=== PATIENT | male | born 1945 | race African-American/Black ===

== ENCOUNTER → 2016-12-05 | Outpatient (CLI) | payer OTHER, MEDICAID ==
[2016-12-05 08:40] LABS: CREATININE 1.42 mg/dL (0.70-1.30)
--- NOTE | 2016-12-05 12:21 | MRI ---
STUDY: MRI OF THE BRAIN WITHOUT AND WITH GADOLINIUM HISTORY: Seizure disorder. Headaches, seizures, and blurred vision. Technique: Multiplanar multi-sequence MRI of the brain was obtained utilizing standard departmental p rotocol. Sagittal and axial T1, axial T2, FLAIR, diffusion (DWI/ADC) images through the brain were pe rformed. Coronal T2 FSE and T2 FLAIR images were also performed. 20 cc of Omniscan was administered intravenously without reported complication following acquisition of informed written consent. Post gadolinium axial and coronal T1 weighted images were also performed and reviewed. Comparison: Findings: Pre gadolinium brain: The sulci, cisterns and ventricles are prominent consistent with diffuse volume loss. There are confluent and scattered foci of T2 prolongation in the periventricular and subcortic al white matter of both hemispheres. This is a nonspecific finding which likely represents microangio pathic change in a patient of this age. Confluent T2 prolongation in the frontal and temporal lobes bilaterally also appears to involve overl ezra cortex. This raises the possibility of prior closed head injury with bifrontal contusions. There is no evidence of acute territorial infarction, hemorrhage, mass, mass effect, or midline shift . There are no abnormal intra-axial or extra-axial fluid collections. There is bilateral hippocampal volume loss. There is no evidence of carlisle matter heterotopia or cortical dysplasia. The major intracr anial vascular flow voids appear intact. The left vertebral artery is dominant. There is left sided a phakia. 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 Post gadolinium brain: Following the uneventful administration of intravenous gadolinium, there is no evidence of abnormal parenchymal or leptomeningeal enhancement. IMPRESSION: 1. No evidence of acute intracranial abnormality. 2. Confluent T2 hyperintensity in the frontal and temporal lobes bilaterally. Clinical correlation f or prior close head injury with bifrontal and temporal contusions is recommended. 3. Nonspecific white matter change and volume loss. Reported By:
== END ==
LOC: RAD 08:10
PROVIDERS: ATTEND Psychiatry & Neurology Neurology
DX: G40.909 Epilepsy, unspecified, not intractable, without status epilepticus (principal)
CPT/HCPCS: 36415; 70553; 82565; 84520